=== PATIENT | male | born 1985 | race Caucasian/White ===

== ENCOUNTER 2017-03-29 04:07 | Emergency (ER) | payer MEDICAID, SELFPAY ==
[~2017-03-29] VITALS: Ht 193 cm; Wt 168.8 kg
[2017-03-29] MEDS ORDERED: MAALOX/HYOSCYAMINE/LIDOCAINE 45 ML BTL ONE (04:42)
[2017-03-29] MEDS ORDERED: ONDANSETRON 2MG/ML, 2ML ONE (04:42)
[2017-03-29] MEDS ORDERED: FAMOTIDINE 20 MG/2 ML ONE (04:43)
[2017-03-29 04:58] VITALS: BP 150/93
[2017-03-29] MEDS ORDERED: SODIUM CHLORIDE FLUSH 10ML SYR IVF ONE (05:00)
[2017-03-29] MEDS ORDERED: FAMOTIDINE 20 MG/2 ML IVP ONE (05:00)
[2017-03-29] MEDS ORDERED: MAALOX/HYOSCYAMINE/LIDOCAINE 45 ML BTL PO ONE (05:00)
[2017-03-29] MEDS ORDERED: ONDANSETRON 2MG/ML, 2ML IVPush ONE (05:00)
[2017-03-29] MEDS ORDERED: SODIUM CHLORIDE 0.9% 1,000ML IVBOLUS ONE (05:00)
[2017-03-29 05:23] LABS: HEMATOCRIT 49.6 % (39.2-51.8); HEMOGLOBIN 16.4 g/dL (13.7-18.0); WHITE BLOOD COUNT 6.8 x10^3/uL (3.4-10)
[2017-03-29] MEDS ORDERED: MORPHINE SULFATE 4 MG/ML, 1ML IVPush PRN (05:30)
[2017-03-29] MEDS ORDERED: MORPHINE SULFATE 4 MG/ML, 1ML ONE (05:31)
[2017-03-29 05:34] LABS: ASPARTATE AMINO TRANSFERASE 17 U/L (15-37); BLOOD UREA NITROGEN 10 mg/dL (7-18)
== END 2017-03-29 07:55 | disposition home or self-care (01) ==
LOC: ED 05:09
DX: K80.20 Calculus of gallbladder without cholecystitis without obstruction (principal); R11.0 Nausea
CPT/HCPCS: 36415; 74020; 76700; 80053; 83690; 85025; 96361; 96374; 96375; 99285; J2405; J7030; S0028